=== PATIENT | male | born 1995 | race Two or more races ===

== ENCOUNTER 2016-12-02 12:51 | Emergency (ER) | payer SELFPAY ==
[~2016-12-02] VITALS: Ht 170.2 cm; Wt 93.4 kg
--- NOTE | 2016-12-02 13:09 | Emergency Room Report ---
History of Present Illness General Chief Complaint: Laceration Source: Patient Present Illness HPI The patient is a 21-year-old male presenting for left hand laceration which occurred at work today. The patient states that he was using a knife which slipped. He is now describing pain and bleeding. Pain described as a 3/10 dull ache and does not radiate. He states that he has a deformity to his left thumb and has not been able to move it in the past. Range of motion feels the same now. He denies any numbness or tingling. he is up-to-date with immunizations including tetanus. Denies any other symptoms Allergies: Coded Allergies: No Known Allergies (Unverified , 12/02/16) Patient History Past Medical History: see triage record Pertinent Family History: none Immunizations: UTD Reviewed Nursing Documentation: PMH: Agreed, PSxH: Agreed Nursing Documentation-PMH Past Medical History: No Stated History Review of Systems All Other Systems: negative except mentioned in HPI Physical Exam Vital Signs Date Time Temp Pulse Resp B/P Pulse Ox O2 Delivery O2 Flow Rate FiO2 12/02/16 12:56 98.4 72 16 151/99 98 Room Air Sp02 EP Interpretation: reviewed, normal General Appearance: no apparent distress, alert, GCS 15, non-toxic Head: normocephalic, atraumatic Eyes: bilateral eye PERRL, bilateral eye normal inspection ENT: hearing grossly normal, normal pharynx, no angioedema, normal voice Musculoskeletal: back normal, gait/station normal, decreased range of motion - L thumb. Normal per patient, tender - TTP over the L thumb laceration Neurologic: alert, oriented x3, responsive, motor strength/tone normal, sensory intact, speech normal Psychiatric: judgement/insight normal, memory normal, mood/affect normal, no suicidal/homicidal ideation Skin: no rash, warm/dry, well hydrated, laceration - 10cm linear laceration over the L lateral thumb and hand Lymphatic: no adenopathy Procedures Laceration/Wound Repair Laceration/Wound Repair : Consent: Verbal Wound Location: upper extremity Wound's Depth, Shape: superficial, linear Wound Length (cm): 10 Wound Explored: clean Irrigated w/ Saline (ccs): 200 Betadine Prep?: Yes Anesthesia: 1% Lidocaine Volume Anesthetic (ccs): 10 Wound Debrided: minimal Wound Repaired With: sutures Suture Size/Type: 4:0, proline Number of Sutures: 10 Layer Closure?: No Sterile Dressing Applied?: Yes Splint Applied?: No Sling Applied?: No Patient Tolerated: Well Complications: None Medical Decision Making PA Attestation Dr. Diego is my supervising physician. Patient management was discussed with my supervising physician Diagnostic Impression: Primary Impression: Hand laceration Qualified Codes: S61.412A - Laceration without foreign body of left hand, initial encounter ER Course 10cm linear laceration over the L lateral thumb and hand Ddx considered include but not limited to fracture, tendon/ligament injury, avulsion, nerve damage PE: NAD 10cm linear laceration over the L lateral thumb and hand. Limited AROM of the thumb with flexion yet patient states this is normal for him. No edema. No ecchymosis The wound was irrigated with normal saline and cleaned with betadine. A 27g needle was used to administer 10mL of lidocaine w.o epi for local anasthesia. 10 sutures were placed with 4-0 prolene. The wound was well approximated and the patient tolerated the procedure well. The wound was then cleaned and bacitracin was applied. Laceration instructions were given. he will follow up with PMD. ER precautions given Last Vital Signs Date Time Temp Pulse Resp B/P Pulse Ox O2 Delivery O2 Flow Rate FiO2 12/02/16 12:56 98.4 72 16 151/99 98 Room Air Status: improved Disposition: HOME, SELF-CARE Condition: Improved Scripts Bacitracin (Bacitracin) 28.4 Gm Oint...g. 1 APPLIC TOPIC THREE TIMES A DAY, #28 GM Prov: YONY WADSWORTH 12/02/16 Ibuprofen* (MOTRIN*) 600 Mg Tablet 600 MG ORAL Q8H Y for For Pain, #30 TAB 0 Refills Prov: YONY WADSWORTHAJulia 12/02/16 YONY WADSWORTH Dec 02, 2016 13:09
[2016-12-02] MEDS ORDERED: Bacitracin Oint UD TOPIC ONE (13:15)
[2016-12-02] MEDS ORDERED: Lidocaine 1% Plain 30 ml INJ ONE (13:15)
[2016-12-02] MEDS ORDERED: IBUPROFEN600 MG ORAL (14:33)
[2016-12-02] MEDS ORDERED: BACITRACIN15 GM TOPIC (14:33)
[2016-12-02 17:52] VITALS: BP 117/73
== END 2016-12-02 14:40 | disposition home or self-care (01) ==
LOC: EMR 13:39
DX: S61.412A Laceration without foreign body of left hand, initial encounter (principal); W26.0XXA Contact with knife, initial encounter; Y93.9 Activity, unspecified; Y99.0 Civilian activity done for income or pay
CPT/HCPCS: 12004; 99284; J2001